=== PATIENT | male | born 1960 | race Caucasian/White ===

== ENCOUNTER 2017-05-03 19:03 | Inpatient (IN) | payer MEDICARE, MEDICAID ==
[~2017-05-03] VITALS: Ht 185.4 cm; Wt 80.7 kg
--- NOTE | 2017-05-03 19:10 | NUR ---
PATIENT BROUGHT IN BY PRIVATE AMBULANCE FROM [facility] ON 5150 HOLD FOR DTO/DTS. PATIENT UPON ARRIVAL A/OX4.CALM AND COOPERATIVE AND AMBULATORY WITH STEADY GAIT
[2017-05-03] MEDS ORDERED: CARB-36 PO (19:21)
[2017-05-03] MEDS ORDERED: ROPI2TAB5 PO (19:21)
[2017-05-03] MEDS ORDERED: PRAM0.7513 PO (19:21)
--- NOTE | 2017-05-03 19:30 | NUR ---
Medically cleared by Dr Alcaraz
--- NOTE | 2017-05-03 20:00 | NUR ---
PATIENT TOLERATED SNACK
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
--- NOTE | 2017-05-03 20:27 | NUR ---
TRANSFERED TO MHU VIA WHEELCHAIR WITH NO DISTRESS NOTED
[2017-05-03 20:30] VITALS: BP 97/65
[2017-05-03] MEDS ORDERED: ZOLPIDEM 5 MG TABLET PO PRN (21:15)
[2017-05-03] MEDS ORDERED: MAG HYDROX/AL HYDROX/SIMETH 30 ML LIQUID UDC PO PRN (21:15)
[2017-05-03] MEDS ORDERED: MAGNESIUM HYDROXIDE 30 ML LIQUID UDC PO PRN (21:15)
[2017-05-03] MEDS ORDERED: ACETAMINOPHEN 325 MG TABLET PO PRN (21:15)
[2017-05-03] MEDS ORDERED: ZOLPIDEM 5 MG TABLET ONE (21:24)
[2017-05-04 07:30] VITALS: BP 99/66
[2017-05-04] MEDS: LORAZEPAM 1 MG TABLET PO PRN (11:20)
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
[2017-05-04 16:30] VITALS: BP 101/57
[2017-05-04] MEDS: ropiniROLE 1 MG TABLET PO SCH ×2 (16:52→21:15)
[2017-05-04] MEDS: CARBIDOPA/LEVODOPA 25-250MG TABLET PO SCH ×2 (16:52→21:14)
[2017-05-04] MEDS: PRAMIPEXOLE 0.25 MG TABLET PO SCH ×2 (16:52→21:16)
[2017-05-04] MEDS ORDERED: LEVODOPA PO SCH (17:00)
[2017-05-04] MEDS ORDERED: [UNRECOGNIZED DRUG - OTHER] PO SCH (17:00)
[2017-05-04] MEDS ORDERED: CARBIDOPA PO SCH (17:00)
[2017-05-04] MEDS ORDERED: PRAMIPEXOLE DI HCL 0.75 MG PO SCH (17:00)
[2017-05-04 20:20] VITALS: BP 95/85
[2017-05-04] MEDS: QUETIAPINE FUMARATE 25 MG TABLET PO SCH (21:00)
--- NOTE | 2017-05-04 22:00 | NUR ---
RECEIVED PATIENT IN THE DAY ROOM WATCHING TV. HE IS A/O X 3. CALM AND COOPERATIVE. SEROQUEL 25MG PO QHS WAS HELD DUE TO PATENT LOW B/P 95/65MMHG AND PULSE 81 BPM. PATIENT DENIES WEAKNESS, DIZZINESS, OR PAIN AND DISCOMFORT. SNACKS WERE GIVEN TO PATIENT. HE WAS ALSO ADVISED TO GET UP SLOWLY FROM SITTING POSITIONS AND TO REPORT ANY CHANGES IN CONDITION. PATIENT VERBALIZED UNDERSTANDING.
[2017-05-05] MEDS: LORAZEPAM 1 MG TABLET PO PRN (04:26)
--- NOTE | 2017-05-05 07:09 | NUR ---
PATIENT SLEPT FOR APPROX 3 HRS THROUGH THE NIGHT. ATIVAN 1MG PO PRN FOR ANXIETY WAS GIVEN AT 0425.
[2017-05-05 08:09] VITALS: BP 107/79
[2017-05-05] MEDS: ropiniROLE 1 MG TABLET PO SCH ×4 (09:14→20:01)
[2017-05-05] MEDS: CARBIDOPA/LEVODOPA 25-250MG TABLET PO SCH ×3 (09:15→17:32)
[2017-05-05] MEDS: PRAMIPEXOLE 0.25 MG TABLET PO SCH ×4 (09:16→20:02)
[2017-05-05 15:59] VITALS: BP 107/79
--- NOTE | 2017-05-05 17:32 | NUR ---
Initial discharge Instructions:Pt resides in a facility with caregivers [[address] [place] [address]; ]. Per pt, he would not like to return there, but would ultimately like to live with his sister (Denisse Raymond; [phone]) in [place], [place]. Pt is consenting to contact his sister Bharti Raymond ([phone]) and his sister Denisse Raymond. SW will speak with pt, family, and MD regarding appropriate discharge plans. SW will form a safe and proper discharge.
--- NOTE | 2017-05-05 19:07 | NUR ---
PATIENT VISIBLE IN DAYROOM SPEND TIME WATCHING TV, AMBULATES WITH WALKER, CALM AND COOPERATIVE TODAY, NO ANGRY OUTBURST NOTED, CONSTANTLY ASKING FOR HIS MEDICATIONS, ATE 100% BREAKFAST, LUNCH AND DINNER. MEDICATION COMPLIANT AND COOPERATIVE, NO C/O PAIN OR DISCOMFORT NOTED. WILL CONTINUE TO MONITOR FOR SAFETY AND NEEDS.
[2017-05-05] MEDS: CARBIDOPA/LEVODOPA 25-100MG TABLET PO SCH (20:00)
[2017-05-05 20:32] VITALS: BP 99/66
[2017-05-05] MEDS: QUETIAPINE FUMARATE 25 MG TABLET PO SCH (21:00)
--- NOTE | 2017-05-05 22:28 | NUR ---
RECEIVED PATIENT SITTING IN A CHAIR IN THE HALLWAY. HE IS A/O X 3. ABLE TO MAKE HIS NEEDS KNOW. HE IS CALM AND COOPERATIVE. SEROQUEL 25MG PO QHS WAS HELD DUE TO PATENT LOW B/P 99/66MMHG AND PULSE 74 BPM. PATIENT DENIES WEAKNESS, DIZZINESS, OR PAIN AND DISCOMFORT. SNACKS WERE GIVEN TO PATIENT. 1HR LATER, HIS B/P WAS 104/60 AND PULSE 58. HE WAS ALSO ADVISED TO GET UP SLOWLY FROM SITTING OR LYING POSITIONS AND TO REPORT ANY CHANGES IN CONDITION. PATIENT VERBALIZED UNDERSTANDING.
[2017-05-06 07:30] VITALS: BP 118/83
[2017-05-06] MEDS: PRAMIPEXOLE 0.25 MG TABLET PO SCH ×4 (09:26→20:47)
[2017-05-06] MEDS: ropiniROLE 1 MG TABLET PO SCH ×4 (09:26→20:47)
[2017-05-06] MEDS: CARBIDOPA/LEVODOPA 25-100MG TABLET PO SCH ×4 (09:26→20:47)
--- NOTE | 2017-05-06 14:12 | NUR ---
Independent Jeweler: JALEEL submitted Firearms Mental Health Report to DOJ on 05/06/17.
[2017-05-06 15:00] VITALS: BP 126/81
[2017-05-06] MEDS: QUETIAPINE FUMARATE 25 MG TABLET PO SCH (20:46)
[2017-05-06 21:00] VITALS: BP 111/75
[2017-05-06] MEDS: LORAZEPAM 1 MG TABLET PO PRN (22:45)
[2017-05-07 07:04] LABS: BASOPHILS % (AUTO) 0.5 % (0.0-2.0); EOSINOPHILS # (AUTO) 0.1 K/uL (0.0-0.7); EOSINOPHILS % (AUTO) 2.4 % (0.0-7.0); HEMATOCRIT 40.4 % (36.7-47.1); HEMOGLOBIN 13.9 g/dL (12.5-16.3); LYMPHOCYTES % (AUTO) 32.1 % (20.5-51.5); MEAN CORPUSCULAR HEMOGLOBIN 30.7 uug (23.8-33.4); MEAN CORPUSCULAR HGB CONC 34 g/dL (32.5-36.3); MEAN CORPUSCULAR VOLUME 89.4 fL (73.0-96.2); MONOCYTES # (AUTO) 0.6 K/uL (2.0-10.0); MONOCYTES % (AUTO) 10.4 % (0.0-11.0); NEUTROPHILS # (AUTO) 3.3 K/uL (1.8-8.9); NEUTROPHILS % (AUTO) 54.6 % (38.5-71.5); PLATELET COUNT (AUTO) 130 K/uL (152-348); RED BLOOD CELL COUNT(AUTO) 4.52 MIL/uL (4.06-5.63); WHITE BLOOD COUNT (AUTO) 6.1 K/uL (3.6-10.2)
[2017-05-07 07:20] LABS: BILIRUBIN,TOTAL 0.3 mg/dL (0.2-1.0); CREATININE 0.9 mg/dL (0.6-1.3); MAGNESIUM 2.1 mg/dL (1.8-2.4); PHOSPHOROUS 3.1 mg/dL (2.5-4.9); POTASSIUM 3.7 mmol/L (3.5-5.1); THYROID STIMULATING HORMONE 2.229 mIU/mL (0.358-3.740); TOTAL PROTEIN, SERUM 7.5 g/dL (6.4-8.2)
[2017-05-07 07:30] VITALS: BP 113/76
[2017-05-07] MEDS: CARBIDOPA/LEVODOPA 25-100MG TABLET PO SCH ×4 (08:45→20:03)
[2017-05-07] MEDS: ropiniROLE 1 MG TABLET PO SCH ×4 (08:45→20:03)
[2017-05-07] MEDS: PRAMIPEXOLE 0.25 MG TABLET PO SCH ×4 (08:45→20:03)
--- NOTE | 2017-05-07 14:39 | NUR ---
Wednesday DC Note: Patient will be discharged to [facility] [[address], [place] [address]; ] via private transportation on May 08 at 12:00 pm. Spoke with Mar at the facility who states that they will provide the transportation and are ready to accept the patient. Patient's sister, Bharti is aware and agreeable with discharge plans. Patient is aware and agreeable with discharge plans. Patient will follow-up at the facility with Dr. Multani (Aircraft Instrument Mechanic) and Dr. Edwards (Psychiatrist).
[2017-05-07 15:38] VITALS: BP 94/54
[2017-05-07] MEDS: QUETIAPINE FUMARATE 25 MG TABLET PO SCH (20:03)
[2017-05-07 20:10] VITALS: BP 104/59
[2017-05-07] MEDS: LORAZEPAM 1 MG TABLET PO PRN (22:48)
--- NOTE | 2017-05-08 07:00 | NUR ---
GPS: REMAIN CALM AND COOPERATIVE AFTER ATIVAN GIVEN.A/O X3 AMBULATORY.SLEPT 07:30 HRS THROUGH THE NIGHT.
[2017-05-08 07:30] VITALS: BP 120/79
[2017-05-08] MEDS: PRAMIPEXOLE 0.25 MG TABLET PO SCH ×4 (08:50→20:07)
[2017-05-08] MEDS: CARBIDOPA/LEVODOPA 25-100MG TABLET PO SCH ×4 (08:50→20:07)
[2017-05-08] MEDS: ropiniROLE 1 MG TABLET PO SCH ×4 (08:51→20:07)
--- NOTE | 2017-05-08 10:22 | NUR ---
CALLED [facility] AND SPOKE TO PROMOTIONAL ADVERTISING ASSISTANT BRITT. STATED THEY WILL ACCEPT PT ON WEDNESDAY.
[2017-05-08 16:54] VITALS: BP 106/70
[2017-05-08] MEDS: QUETIAPINE FUMARATE 25 MG TABLET PO SCH (20:07)
[2017-05-08 20:47] VITALS: BP 112/63
--- NOTE | 2017-05-09 06:41 | NUR ---
NSG: REMAIN CALM AND COOPERATIVE WITH MEDICATION AND CARE. SLEPT 05:30 HRS THROUGH THE NIGHT.NO BEHAVIOR PROBLEM NOTED. CONTINUE PLAN OF CARE.
[2017-05-09 07:23] LABS: BASOPHILS % (AUTO) 0.3 % (0.0-2.0); EOSINOPHILS # (AUTO) 0.1 K/uL (0.0-0.7); EOSINOPHILS % (AUTO) 2.1 % (0.0-7.0); HEMATOCRIT 41.8 % (36.7-47.1); HEMOGLOBIN 14.2 g/dL (12.5-16.3); LYMPHOCYTES # (AUTO) 1.9 K/uL (20.0-40.0); LYMPHOCYTES % (AUTO) 34.2 % (20.5-51.5); MEAN CORPUSCULAR HEMOGLOBIN 30.4 uug (23.8-33.4); MEAN CORPUSCULAR HGB CONC 34 g/dL (32.5-36.3); MEAN CORPUSCULAR VOLUME 89.5 fL (73.0-96.2); MONOCYTES # (AUTO) 0.6 K/uL (2.0-10.0); MONOCYTES % (AUTO) 11.6 % (0.0-11.0); NEUTROPHILS # (AUTO) 2.8 K/uL (1.8-8.9); NEUTROPHILS % (AUTO) 51.8 % (38.5-71.5); PLATELET COUNT (AUTO) 129 K/uL (152-348); RED BLOOD CELL COUNT(AUTO) 4.67 MIL/uL (4.06-5.63); WHITE BLOOD COUNT (AUTO) 5.4 K/uL (3.6-10.2)
[2017-05-09 07:30] VITALS: BP 133/85
[2017-05-09 08:04] LABS: BILIRUBIN,TOTAL 0.4 mg/dL (0.2-1.0); CREATININE 0.9 mg/dL (0.6-1.3); PHOSPHOROUS 3.2 mg/dL (2.5-4.9); TOTAL PROTEIN, SERUM 7.7 g/dL (6.4-8.2)
[2017-05-09] MEDS: CARBIDOPA/LEVODOPA 25-100MG TABLET PO SCH ×4 (08:44→20:06)
[2017-05-09] MEDS: PRAMIPEXOLE 0.25 MG TABLET PO SCH ×4 (08:44→20:06)
[2017-05-09] MEDS: ropiniROLE 1 MG TABLET PO SCH ×4 (08:44→20:06)
[2017-05-09 16:46] VITALS: BP 110/72
[2017-05-09] MEDS ORDERED: PNEUMOCOCCAL 23-VAL P-SAC VAC 0.5 ML VIAL IM ONE (17:00)
[2017-05-09] MEDS ORDERED: INFLUENZA VACCINE 2017-2018 0.5 ML DISP.SYRIN IM ONE (17:00)
[2017-05-09] MEDS: QUETIAPINE FUMARATE 25 MG TABLET PO SCH (20:06)
[2017-05-09 20:27] VITALS: BP 123/81
--- NOTE | 2017-05-09 20:59 | NUR ---
PATIENT RECEIVED IN ROOM AWAKE. PATIENT HAS FLAT AFFECT, PATIENT CALM AND COOPERATIVE UPON APPROACH. PATIENT DENIES SI/AH/VH WILL CONTINUE TO MONITOR AND REDIRECT NEEDED. NO AGGRESSIVE OR COMBATIVE BEHAVIOR NOTED WILL CONTINUE TO MONITOR AND REDIRECT. PATIENT COMPLAINT WITH MEDICATION. PATIENT DENIES PAIN AT THIS TIME, WILL CONTINUE TO MONITOR.
[2017-05-09] MEDS: LORAZEPAM 1 MG TABLET PO PRN (23:17)
[2017-05-10 07:30] VITALS: BP 115/80
[2017-05-10] MEDS: PRAMIPEXOLE 0.25 MG TABLET PO SCH ×2 (08:19→12:09)
[2017-05-10] MEDS: CARBIDOPA/LEVODOPA 25-100MG TABLET PO SCH ×2 (08:20→12:08)
[2017-05-10] MEDS: ropiniROLE 1 MG TABLET PO SCH ×2 (08:20→12:09)
[2017-05-10] MEDS: LORAZEPAM 1 MG TABLET PO PRN (08:20)
--- NOTE | 2017-05-10 08:46 | NUR ---
Updated DC Note: Patient will be discharged to [facility] [[address], [place] [address]; ] via private transportation today at 12:00 pm. Spoke with Mar at the facility who states that they will provide the transportation and are ready to accept the patient. Patient's sister, Bharti is aware and agreeable with discharge plans. Patient is aware and agreeable with discharge plans. Patient will follow-up at the facility with Dr. Multani (Cnc Field Service Engineer) and Dr. Edwards (Psychiatrist)
[2017-05-10 12:11] LABS: HEPATITIS A AB, IgM Negative (Negative); HEPATITIS B SURFACE AG Negative (Negative)
--- NOTE | 2017-05-10 13:06 | NUR ---
GPS: Nursing Notes: Discharge Notes: Patient is awake and responding to his name, cooperative with nursing care, compliant with his medications, denies any SI/HI, denies any AH/VH, denies any pain or discomfort, denies any SOB, discharge to [facility] at [address] , [place] [address] , report given to Simin ATKINSON, patient's sister, Bharti notified by S.W., Dr. Multani (wagon driver) and Dr. Edwards (psychiatrist) will continue with aftercare at the facility, picked up by facility's private vehicle, [employer] winch driver, took all his belongings with him.
--- NOTE | 2017-05-10 15:04 | NUR ---
FAXED THE RESULTS OF HEPATITIS TESTS TO SALVATORE CARMONA ([id number])
== END 2017-05-10 13:15 | DRG 885 ==
LOC: ER 19:04 → EDBD 19:04 → GPS 20:13
PROVIDERS: ADMIT Psychiatry & Neurology Psychiatry; ATTEND Internal Medicine
DX: F23 Brief psychotic disorder (principal); F02.80 Dementia in other diseases classified elsewhere, unspecified severity, without behavioral disturbance, psychotic disturbance, mood disturbance, and anxiety; B18.2 Chronic viral hepatitis C; D69.6 Thrombocytopenia, unspecified; G20 Parkinson's disease; G30.9 Alzheimer's disease, unspecified; Z91.14 Patient's other noncompliance with medication regimen; F15.10 Other stimulant abuse, uncomplicated; G47.00 Insomnia, unspecified; Z86.59 Personal history of other mental and behavioral disorders; T42.8X5A Adverse effect of antiparkinsonism drugs and other central muscle-tone depressants, initial encounter; Y92.007 Garden or yard of unspecified non-institutional (private) residence as the place of occurrence of the external cause; F32.9 Major depressive disorder, single episode, unspecified; Z79.899 Other long term (current) drug therapy; L80 Vitiligo
CPT/HCPCS: 36415; 76705; 83735; 84100; 84443; 85025; 86705; 86709; 86803; 87340; 90686; 90732; A4663

== ENCOUNTER 2018-11-30 20:55 | Inpatient (IN) | payer MEDICARE, OTHER ==
[~2018-11-30] VITALS: Ht 182.9 cm; Wt 92.1 kg
[~2018-11-30 20:55] MED LIST: CARB-36 PO; PRAM0.7519 PO; ROPI2TAB5 PO
[2018-11-30 22:33] LABS: BASOPHILS % (AUTO) 0.4 % (0.0-2.0); EOSINOPHILS # (AUTO) 0.1 K/uL (0.0-0.7); EOSINOPHILS % (AUTO) 2.4 % (0.0-7.0); HEMATOCRIT 38.8 % (36.7-47.1); HEMOGLOBIN 12.9 g/dL (12.5-16.3); LYMPHOCYTES # (AUTO) 2.3 K/uL (20.0-40.0); LYMPHOCYTES % (AUTO) 37.3 % (20.5-51.5); MEAN CORPUSCULAR HEMOGLOBIN 29.1 uug (23.8-33.4); MEAN CORPUSCULAR HGB CONC 33 g/dL (32.5-36.3); MEAN CORPUSCULAR VOLUME 87.6 fL (73.0-96.2); MONOCYTES # (AUTO) 0.6 K/uL (2.0-10.0); NEUTROPHILS # (AUTO) 3.1 K/uL (1.8-8.9); NEUTROPHILS % (AUTO) 50.9 % (38.5-71.5); PLATELET COUNT (AUTO) 145 K/uL (152-348); RED BLOOD CELL COUNT(AUTO) 4.43 MIL/uL (4.06-5.63); WHITE BLOOD COUNT (AUTO) 6.2 K/uL (3.6-10.2)
[2018-11-30 22:41] LABS: *BILIRUBIN,URIN NEGATIVE (NEGATIVE); *BLOOD, URINE NEGATIVE (NEGATIVE); *CLARITY,URINE CLEAR (CLEAR); *COLOR,URINE YELLOW (YELLOW); *KETONES,URINE TRACE (NEGATIVE); LEUKOCYTE ESTERASE ,URINE NEGATIVE (NEGATIVE); NITRITE, URINE NEGATIVE (NEGATIVE); UGLUCOSE NEGATIVE (NEGATIVE)
[2018-11-30 22:44] LABS: ALANINE AMINOTRANSFERASE 47 U/L (16-63); ALKALINE PHOSPHATASE 148 U/L (50-136); ASPARTATE AMINOTRANSFERASE 72 U/L (15-37); BILIRUBIN,DIRECT 0.1 mg/dL (0.0-0.2); BILIRUBIN,TOTAL 0.4 mg/dL (0.2-1.0); CARBON DIOXIDE 30 mmol/L (21-32); CHLORIDE 105 mmol/L (98-107); CREATININE 0.9 mg/dL (0.6-1.3); GLUCOSE 106 mg/dL (74-106); POTASSIUM 4.1 mmol/L (3.5-5.1); TOTAL PROTEIN, SERUM 7.6 g/dL (6.4-8.2); UREA NITROGEN, BLOOD 23 mg/dL (7-18)
[2018-11-30 22:45] LABS: ACETAMINOPHEN < 2.0 ug/mL (10-30)
[2018-11-30 22:54] LABS: BACTERIA,URINE NONE SEEN /HPF (NONE SEEN); MUCUS,URINE MODERATE /LPF (0-FEW); RBC,URINE 0-3 /HPF (0-3); SQUAMOUS EPITHELIAL CELL,UR FEW /HPF (NONE SEEN); WBC,URINE 0-3 /HPF (0-3)
[2018-11-30 23:00] LABS: *AMPHETAMINE, URINE POSITIVE (NEGATIVE); *BARBITURATE, URINE NEGATIVE (NEGATIVE); *CANNABINOID, URINE NEGATIVE (NEGATIVE); *COCCAINE, URINE NEGATIVE (NEGATIVE); *OPIATE, URINE NEGATIVE (NEGATIVE); *PHENCYCLIDINE SCREEN,URINE NEGATIVE (NEGATIVE)
[2018-11-30 23:02] LABS: ETHANOL < 3 MG/DL (0-0)
[2018-12-01] MEDS ORDERED: ACETAMINOPHEN 325 MG TABLET PO PRN
[2018-12-01] MEDS ORDERED: LORAZEPAM 1 MG TABLET PO PRN
[2018-12-01] MEDS ORDERED: MAG HYDROX/AL HYDROX/SIMETH 30 ML LIQUID UDC PO PRN
[2018-12-01] MEDS ORDERED: MAGNESIUM HYDROXIDE 30 ML LIQUID UDC PO PRN
[2018-12-01 00:24] VITALS: BP 110/66
[2018-12-01 07:30] VITALS: BP 137/88
[2018-12-01] MEDS ORDERED: LEVODOPA PO SCH (10:00)
[2018-12-01] MEDS ORDERED: CARBIDOPA PO SCH (10:00)
[2018-12-01] MEDS ORDERED: [UNRECOGNIZED DRUG - OTHER] PO SCH (10:00)
[2018-12-01] MEDS ORDERED: PRAMIPEXOLE DI HCL 0.75 MG PO SCH (10:00)
[2018-12-01] MEDS ORDERED: CARB-94 PO (10:22)
[2018-12-01] MEDS ORDERED: PRAM1TAB7 PO (10:30)
[2018-12-01] MEDS ORDERED: MELA3TAB PO (10:30)
[2018-12-01] MEDS ORDERED: CARB-96 PO (10:30)
[2018-12-01] MEDS ORDERED: DOCU100C36 PO (10:30)
[2018-12-01] MEDS ORDERED: MULT1TAB73 PO (10:30)
[2018-12-01] MEDS: ropiniROLE 1 MG TABLET PO SCH ×4 (11:37→20:43)
[2018-12-01] MEDS: MULTIVITAMINS,THERAPEUTIC TABLET PO SCH (12:49)
[2018-12-01] MEDS: PRAMIPEXOLE 1 MG TABLET PO SCH ×3 (12:49→20:43)
[2018-12-01] MEDS: CARBIDOPA/LEVODOPA 25-250MG TABLET PO SCH ×3 (12:50→20:43)
[2018-12-01 16:00] VITALS: BP 110/72
[2018-12-01 20:12] VITALS: BP 100/64
[2018-12-01] MEDS: QUETIAPINE FUMARATE 25 MG TABLET PO SCH (20:43)
[2018-12-01] MEDS: CARBIDOPA/LEVODOPA CR 50-200MG TABLET.SA PO SCH (23:44)
[2018-12-02 07:30] VITALS: BP 119/76
[2018-12-02] MEDS: ropiniROLE 1 MG TABLET PO SCH ×4 (08:29→20:26)
[2018-12-02] MEDS: CARBIDOPA/LEVODOPA 25-250MG TABLET PO SCH ×4 (08:29→20:25)
[2018-12-02] MEDS: MULTIVITAMINS,THERAPEUTIC TABLET PO SCH (08:30)
[2018-12-02] MEDS: PRAMIPEXOLE 1 MG TABLET PO SCH ×4 (08:30→20:25)
[2018-12-02] MEDS: QUETIAPINE FUMARATE 25 MG TABLET PO SCH ×2 (08:30→20:25)
[2018-12-02] MEDS: DOCUSATE SODIUM 100 MG CAPSULE PO SCH (08:30)
[2018-12-02] MEDS ORDERED: Medication Not On Formulary EA (Multivitamins (Multivitamin) 1 TAB) PO SCH (09:00)
[2018-12-02 16:00] VITALS: BP 99/59
[2018-12-02 19:49] VITALS: BP 115/75
[2018-12-02] MEDS: CARBIDOPA/LEVODOPA CR 50-200MG TABLET.SA PO SCH (20:25)
[2018-12-02] MEDS: TEMAZEPAM 7.5 MG CAPSULE PO PRN (23:26)
[2018-12-03 07:30] VITALS: BP 127/87
[2018-12-03] MEDS: MULTIVITAMINS,THERAPEUTIC TABLET PO SCH (08:54)
[2018-12-03] MEDS: PRAMIPEXOLE 1 MG TABLET PO SCH ×4 (08:54→20:32)
[2018-12-03] MEDS: QUETIAPINE FUMARATE 25 MG TABLET PO SCH ×2 (08:54→20:32)
[2018-12-03] MEDS: CARBIDOPA/LEVODOPA 25-250MG TABLET PO SCH ×4 (08:54→20:32)
[2018-12-03] MEDS: ropiniROLE 1 MG TABLET PO SCH ×4 (08:54→20:32)
[2018-12-03] MEDS: DOCUSATE SODIUM 100 MG CAPSULE PO SCH (08:54)
[2018-12-03 16:00] VITALS: BP 110/65
[2018-12-03 20:11] VITALS: BP 110/65
[2018-12-03] MEDS: CARBIDOPA/LEVODOPA CR 50-200MG TABLET.SA PO SCH (20:32)
[2018-12-03] MEDS: TEMAZEPAM 7.5 MG CAPSULE PO PRN (22:53)
[2018-12-04 07:30] VITALS: BP 135/87
[2018-12-04] MEDS: ropiniROLE 1 MG TABLET PO SCH ×4 (08:37→20:08)
[2018-12-04] MEDS: DOCUSATE SODIUM 100 MG CAPSULE PO SCH (08:37)
[2018-12-04] MEDS: CARBIDOPA/LEVODOPA 25-250MG TABLET PO SCH ×4 (08:37→20:06)
[2018-12-04] MEDS: MULTIVITAMINS,THERAPEUTIC TABLET PO SCH (08:37)
[2018-12-04] MEDS: QUETIAPINE FUMARATE 25 MG TABLET PO SCH ×2 (08:37→20:07)
[2018-12-04] MEDS: PRAMIPEXOLE 1 MG TABLET PO SCH ×4 (08:37→20:06)
[2018-12-04 16:00] VITALS: BP 119/75
[2018-12-04 20:00] VITALS: BP 129/78
[2018-12-04] MEDS: CARBIDOPA/LEVODOPA CR 50-200MG TABLET.SA PO SCH (20:06)
[2018-12-04] MEDS: TEMAZEPAM 7.5 MG CAPSULE PO PRN (21:54)
[2018-12-05 07:30] VITALS: BP 119/75
[2018-12-05] MEDS: ropiniROLE 1 MG TABLET PO SCH ×4 (08:21→20:18)
[2018-12-05] MEDS: PRAMIPEXOLE 1 MG TABLET PO SCH ×4 (08:21→20:16)
[2018-12-05] MEDS: CARBIDOPA/LEVODOPA 25-250MG TABLET PO SCH ×4 (08:22→20:14)
[2018-12-05] MEDS: MULTIVITAMINS,THERAPEUTIC TABLET PO SCH (08:22)
[2018-12-05] MEDS: QUETIAPINE FUMARATE 25 MG TABLET PO SCH ×2 (08:22→20:14)
[2018-12-05] MEDS: DOCUSATE SODIUM 100 MG CAPSULE PO SCH (08:22)
[2018-12-05 16:06] VITALS: BP 121/82
[2018-12-05 20:06] VITALS: BP 125/78
[2018-12-05] MEDS: CARBIDOPA/LEVODOPA CR 50-200MG TABLET.SA PO SCH (20:14)
[2018-12-05] MEDS: QUETIAPINE FUMARATE 100 MG TABLET PO SCH (22:00)
[2018-12-05] MEDS: TEMAZEPAM 7.5 MG CAPSULE PO PRN (23:04)
[2018-12-06 07:30] VITALS: BP 126/89
[2018-12-06] MEDS: DOCUSATE SODIUM 100 MG CAPSULE PO SCH (08:20)
[2018-12-06] MEDS: ropiniROLE 1 MG TABLET PO SCH ×4 (08:20→20:25)
[2018-12-06] MEDS: QUETIAPINE FUMARATE 25 MG TABLET PO SCH (08:21)
[2018-12-06] MEDS: MULTIVITAMINS,THERAPEUTIC TABLET PO SCH (08:21)
[2018-12-06] MEDS: PRAMIPEXOLE 1 MG TABLET PO SCH ×4 (08:21→20:24)
[2018-12-06] MEDS: CARBIDOPA/LEVODOPA 25-250MG TABLET PO SCH ×4 (08:21→20:24)
[2018-12-06 15:33] VITALS: BP 110/62
[2018-12-06 20:05] VITALS: BP 123/81
[2018-12-06] MEDS: QUETIAPINE FUMARATE 100 MG TABLET PO SCH (20:18)
[2018-12-06 20:50] VITALS: BP 133/87
[2018-12-06] MEDS: TEMAZEPAM 7.5 MG CAPSULE PO PRN (21:19)
[2018-12-07] MEDS: CARBIDOPA/LEVODOPA CR 50-200MG TABLET.SA PO SCH (00:19)
[2018-12-07 05:00] VITALS: BP 120/77
[2018-12-07] MEDS: PRAMIPEXOLE 1 MG TABLET PO SCH ×2 (08:31→12:25)
[2018-12-07] MEDS: CARBIDOPA/LEVODOPA 25-250MG TABLET PO SCH ×2 (08:31→12:26)
[2018-12-07] MEDS: DOCUSATE SODIUM 100 MG CAPSULE PO SCH (08:31)
[2018-12-07] MEDS: MULTIVITAMINS,THERAPEUTIC TABLET PO SCH (08:31)
[2018-12-07] MEDS: QUETIAPINE FUMARATE 25 MG TABLET PO SCH (08:32)
[2018-12-07] MEDS: ropiniROLE 1 MG TABLET PO SCH ×2 (08:33→12:25)
[2018-12-07 11:40] VITALS: BP 116/74
== END 2018-12-07 14:20 | DRG 885 ==
LOC: EDBD → MERGE 20:55 → ER 20:55 → GPS 23:43 → GPSOV3 12-06 21:04
PROVIDERS: ADMIT Psychiatry & Neurology Psychiatry; ATTEND Internal Medicine
DX: F20.0 Paranoid schizophrenia (principal); G20 Parkinson's disease; H54.61 Unqualified visual loss, right eye, normal vision left eye; Z79.899 Other long term (current) drug therapy; R79.89 Other specified abnormal findings of blood chemistry; F15.10 Other stimulant abuse, uncomplicated; F10.10 Alcohol abuse, uncomplicated; Y90.0 Blood alcohol level of less than 20 mg/100 ml; F51.04 Psychophysiologic insomnia; D69.6 Thrombocytopenia, unspecified
CPT/HCPCS: 36415; 71045; 80307; 85025; 93005; 97110; 97112; 97116; 97530; A4663; G0480; G0480-TC

== ENCOUNTER 2019-07-18 17:51 | Inpatient (IN) | payer MEDICARE, OTHER ==
[~2019-07-18] VITALS: Ht 182.9 cm; Wt 88.9 kg
[~2019-07-18 17:51] MED LIST changes: -CARB-36 PO; +CARB-94 PO; +CARB-96 PO; +DOCU100C36 PO; +MELA3TAB41 PO; +MULT1TAB73 PO; -PRAM0.7519 PO; +PRAM1TAB7 PO; -ROPI2TAB5 PO; +ROPI2TAB7 PO
[2019-07-18 18:27] LABS: BASOPHILS % (AUTO) 0.4 % (0.0-2.0); EOSINOPHILS # (AUTO) 0.1 K/uL (0.0-0.7); EOSINOPHILS % (AUTO) 1.6 % (0.0-7.0); HEMATOCRIT 41.8 % (36.7-47.1); HEMOGLOBIN 13.9 g/dL (12.5-16.3); LYMPHOCYTES # (AUTO) 1.9 K/uL (20.0-40.0); LYMPHOCYTES % (AUTO) 25.3 % (20.5-51.5); MEAN CORPUSCULAR HEMOGLOBIN 28.8 uug (23.8-33.4); MEAN CORPUSCULAR HGB CONC 33 g/dL (32.5-36.3); MEAN CORPUSCULAR VOLUME 86.7 fL (73.0-96.2); MONOCYTES # (AUTO) 0.8 K/uL (2.0-10.0); MONOCYTES % (AUTO) 11.1 % (0.0-11.0); NEUTROPHILS # (AUTO) 4.5 K/uL (1.8-8.9); NEUTROPHILS % (AUTO) 61.6 % (38.5-71.5); PLATELET COUNT (AUTO) 168 K/uL (152-348); RED BLOOD CELL COUNT(AUTO) 4.82 MIL/uL (4.06-5.63); WHITE BLOOD COUNT (AUTO) 7.4 K/uL (3.6-10.2)
[2019-07-18 18:37] LABS: CARBON DIOXIDE 30 mmol/L (21-32); CHLORIDE 106 mmol/L (98-107); GLUCOSE 101 mg/dL (74-106); POTASSIUM 4.1 mmol/L (3.5-5.1); UREA NITROGEN, BLOOD 31 mg/dL (7-18)
[2019-07-18] MEDS ORDERED: DULCOLAX SUPP PR (18:42)
[2019-07-18] MEDS ORDERED: NA P133E RC (18:42)
[2019-07-18] MEDS ORDERED: FLUD0.1T PO (18:42)
[2019-07-18] MEDS ORDERED: CALC500T88 PO (18:42)
[2019-07-18] MEDS ORDERED: ACET-2154 PO (18:42)
[2019-07-18] MEDS ORDERED: TRAZ-182 PO (18:42)
[2019-07-18] MEDS ORDERED: ROPI3TAB PO (18:42)
[2019-07-18] MEDS ORDERED: MV-M1TAB2 PO (18:42)
[2019-07-18] MEDS ORDERED: ROPI2TAB PO (18:42)
[2019-07-18] MEDS ORDERED: SIME120L PO (18:42)
[2019-07-18] MEDS ORDERED: MAGN400O6 PO (18:42)
[2019-07-18] MEDS ORDERED: QUET25TA PO (18:42)
[2019-07-18 18:50] LABS: ALANINE AMINOTRANSFERASE 74 U/L (16-63); ALKALINE PHOSPHATASE 131 U/L (50-136); ASPARTATE AMINOTRANSFERASE 159 U/L (15-37); BILIRUBIN,DIRECT 0.2 mg/dL (0.0-0.2); BILIRUBIN,TOTAL 0.6 mg/dL (0.2-1.0); TOTAL PROTEIN, SERUM 8.2 g/dL (6.4-8.2)
[2019-07-18 18:52] LABS: ACETAMINOPHEN < 2.0 ug/mL (10-30)
[2019-07-18 18:59] LABS: ETHANOL < 3 MG/DL (0-0)
--- NOTE | 2019-07-18 19:05 | NUR ---
RECEIVED HAND OFF AND SBAR FR OUTGOING DAY SHIFT RN PT IS SITTING AT END OF GURBOYCE NAD PENDING DECISION HOUSE SUP REGARDING ADMISSION VS TRANSPORT TO [facility] PENDING URINE SAMPLE PT IS CALM AND COMPLIANT
--- NOTE | 2019-07-18 19:38 | NUR ---
F/U WITH HOUSE SUP: PT OK TO ADMIT TO 3RD FLR OVER FLOW
--- NOTE | 2019-07-18 19:39 | NUR ---
CALL FOR BED DONE RM 323
[2019-07-18] MEDS ORDERED: CARBIDOPA/LEVODOPA CR 50-200MG TABLET.SA PO SCH (20:45)
[2019-07-18] MEDS ORDERED: CARBIDOPA/LEVODOPA CR 50-200MG TABLET.SA PO ONE (20:47)
--- NOTE | 2019-07-18 20:53 | NUR ---
DIMA AMEZCUA ETA 30MINS
[2019-07-18 21:08] LABS: *BILIRUBIN,URIN NEGATIVE (NEGATIVE); *BLOOD, URINE NEGATIVE (NEGATIVE); *CLARITY,URINE CLEAR (CLEAR); *COLOR,URINE YELLOW (YELLOW); *KETONES,URINE TRACE (NEGATIVE); LEUKOCYTE ESTERASE ,URINE NEGATIVE (NEGATIVE); NITRITE, URINE NEGATIVE (NEGATIVE); UGLUCOSE NEGATIVE (NEGATIVE)
[2019-07-18 21:31] LABS: MUCUS,URINE MODERATE /LPF (0-FEW); WBC,URINE 0-3 /HPF (0-3)
--- NOTE | 2019-07-18 21:58 | NUR ---
GOLDIE AT BEDSIDE FOR PSYCHE EVAL
--- NOTE | 2019-07-18 22:01 | NUR ---
FOR VOLUNTARY ADMISSION
--- NOTE | 2019-07-18 23:18 | NUR ---
HAND OFF AND SBAR GIVEN TO JANAE WOLF PT WILL BE ADMITTED PSYCHE OVERFLOW TO RM [address] HDEZ/ LOLA DX: PSYCHE EVAL/VOLUNTARY ADMISSION FOR PSYCHOSIS (AUDITORY HALLUCINATIONS) PT NAD, RA BELONGINGS LIST SIGNED AND ACCOUNTED FOR
--- NOTE | 2019-07-18 23:40 | NUR ---
TRANSPORTED VIA [facility] BY ALEX WOLF
[2019-07-18] MEDS ORDERED: CLONAZEPAM 0.5 MG TABLET PO PRN (23:45)
[2019-07-18] MEDS ORDERED: TEMAZEPAM 7.5 MG CAPSULE PO PRN (23:45)
[2019-07-18] MEDS ORDERED: ACETAMINOPHEN 325 MG TABLET PO PRN (23:45)
[2019-07-18] MEDS ORDERED: MAG HYDROX/AL HYDROX/SIMETH 30 ML LIQUID UDC PO PRN (23:45)
[2019-07-18] MEDS ORDERED: BLOOD SUGAR DIAGNOSTIC 1 EACH STRIP VI ONE (23:45)
[2019-07-18] MEDS ORDERED: MAGNESIUM HYDROXIDE 30 ML LIQUID UDC PO PRN (23:45)
--- NOTE | 2019-07-18 23:45 | NUR ---
PATIENT ADMITTED FROM EMERGENCY DEPARTMENT TO [facility] WITH DIAGNOSIS OF MAJOR DEPRESSION. PATIENT DENIES ANY HALLUCINATIONS OR SUICIDAL IDEATIONS. SAFETY/ FALL PRECAUTIONS IN PLACE PRECAUTIONS IN PLACE. BED ALARM ON, BED LOCKED, IN LOW POSITION, SEMI FOWLERS. VITAL SIGNS WITHIN NORMAL. ADMISSION ORDERS CARRIED OUT. WILL CONTINUE TO MONITOR.
[2019-07-18 23:56] VITALS: BP 135/78
[2019-07-19] MEDS ORDERED: CARBIDOPA/LEVODOPA 25-250MG TABLET PO ONE (00:15)
[2019-07-19] MEDS ORDERED: PRAMIPEXOLE 1 MG TABLET PO ONE (00:15)
--- NOTE | 2019-07-19 00:15 | NUR ---
PATIENT VERBALIZE THAT HE HAS NOT YET TAKEN HIS FINAL DAILY DOSE OF CARBIDOPA/LEVIDOPA 25-250 AND MIRAPEX 1MG. CONTACTED DOCTOR GRADING CLERK, IRISH ANNA, AND HE GAVE ONE TIME ORDER FOR CARBIDOPA/LEVIDOPA 25-250 AND MIRAPEX 1MG.
[2019-07-19 03:12] LABS: *AMPHETAMINE, URINE POSITIVE (NEGATIVE); *BARBITURATE, URINE NEGATIVE (NEGATIVE); *CANNABINOID, URINE NEGATIVE (NEGATIVE); *COCCAINE, URINE NEGATIVE (NEGATIVE)
[2019-07-19 03:13] LABS: *OPIATE, URINE NEGATIVE (NEGATIVE); *PHENCYCLIDINE SCREEN,URINE NEGATIVE (NEGATIVE)
[2019-07-19] MEDS ORDERED: FLUDROCORTISONE ACETATE 0.1 MG TABLET PO PRN (08:00)
[2019-07-19] MEDS: CARBIDOPA/LEVODOPA CR 50-200MG TABLET.SA PO SCH ×2 (08:17→16:17)
[2019-07-19] MEDS: ropiniROLE 1 MG TABLET PO SCH ×3 (08:18→16:17)
[2019-07-19] MEDS: PRAMIPEXOLE 1 MG TABLET PO SCH ×4 (08:18→20:52)
[2019-07-19] MEDS: CARBIDOPA/LEVODOPA 25-250MG TABLET PO SCH ×4 (08:18→20:52)
[2019-07-19 08:21] VITALS: BP 123/84
[2019-07-19] MEDS ORDERED: ROPINIROLE HCL 2 MG PO SCH (09:00)
--- NOTE | 2019-07-19 11:17 | NUR ---
Social Work/Initial Discharge Note: Patient currently resides at [facility] [address] [place] [address]; ([phone]). Patient would like to return to facility when stable and ready for discharge. Cornice Upholsterer will continue to work with patient , family, and MD to form a safe and proper discharge plan.
--- NOTE | 2019-07-19 11:18 | NUR ---
Social Work/Substance Abuse Intervention: Patient was provided with a brief substance abuse intervention and provided with the [facility] Substance Abuse Self-helpline ([facility]) ([phone]), [facility] [place] [facility]: Agnes Page [address] [address] ([phone]).
--- NOTE | 2019-07-19 11:53 | NUR ---
Social Work/Firearms Report (DOJ): Char Puller completed and submitted a DPJ firearms report. A copy of report has been placed in patient chart.
[2019-07-19 15:54] VITALS: BP 153/57
[2019-07-19] MEDS: TRAZODONE 50 MG TABLET PO SCH (17:03)
[2019-07-19] MEDS: QUETIAPINE FUMARATE 25 MG TABLET PO SCH (17:03)
--- NOTE | 2019-07-19 19:30 | NUR ---
Received pt awake, alert and orientedx 3 . Pt in no acute distress.Pt pleasant when approached. Pt no suicidal ideation. Safety and comfort provided. Will continue to monitor.
[2019-07-19 20:05] VITALS: BP 113/66
[2019-07-20 05:39] VITALS: BP 112/68
--- NOTE | 2019-07-20 06:15 | NUR ---
Pt slept 8 hours . Pt in no acute distress. Prescribed medication given and pt tolerated it well. Safety and comfort provided. All needs are met. Will endorse to incoming nurse for continuity of care.
[2019-07-20 07:17] VITALS: BP 129/77
--- NOTE | 2019-07-20 07:30 | NUR ---
Received pt awake, alert and oriented x 3 . no acute distress.Pt pleasant when approached. no suicidal ideation. Safety and comfort provided. Will continue to monitor.
[2019-07-20] MEDS: CARBIDOPA/LEVODOPA 25-250MG TABLET PO SCH ×4 (08:00→20:17)
[2019-07-20] MEDS: ropiniROLE 1 MG TABLET PO SCH ×3 (08:00→16:13)
[2019-07-20] MEDS: PRAMIPEXOLE 1 MG TABLET PO SCH ×4 (08:00→20:14)
[2019-07-20] MEDS: CARBIDOPA/LEVODOPA CR 50-200MG TABLET.SA PO SCH ×2 (08:00→16:13)
--- NOTE | 2019-07-20 15:18 | NUR ---
Social Work/Coordination of Care: Stull Hewer spoke with Edna from the intake department of [facility] ([phone]) and faxed patient's referral packet which includes patients History and Physical, Consultation, Medication List and Labs, and Progress Notes. Edna stated that they currently have a waitlist for their Intensive Outpatient Program and that patient will be placed on the list.
[2019-07-20 15:30] VITALS: BP 110/68
[2019-07-20] MEDS: QUETIAPINE FUMARATE 25 MG TABLET PO SCH (17:01)
[2019-07-20] MEDS: TRAZODONE 50 MG TABLET PO SCH (17:02)
--- NOTE | 2019-07-20 17:48 | NUR ---
pt seen by dr Singh
--- NOTE | 2019-07-20 19:30 | NUR ---
PATIENT ALERT AND ORIENT. NO STATEMENT OF SUICIDAL IDEATION OF DEPRESSING UPON ASSESSMENT. AFFECT IS APPROPRIATE, AND PATIENT IS COOPERATIVE. WILL CONTINUE TO MONITOR.
[2019-07-20 20:11] VITALS: BP 98/59
--- NOTE | 2019-07-21 06:23 | NUR ---
Patient slept well during the night. PRN Restoril given for slept management. Patient requesting information regarding discharge plans from social insurance analyst today. Will inform day shift RN. Will continue to monitor.
[2019-07-21] MEDS: CARBIDOPA/LEVODOPA 25-250MG TABLET PO SCH (08:05)
[2019-07-21] MEDS: PRAMIPEXOLE 1 MG TABLET PO SCH (08:05)
[2019-07-21] MEDS: CARBIDOPA/LEVODOPA CR 50-200MG TABLET.SA PO SCH (08:05)
[2019-07-21] MEDS: ropiniROLE 1 MG TABLET PO SCH (08:06)
--- NOTE | 2019-07-21 08:07 | NUR ---
Social Work/ Discharge Note: Patient will be discharged to [facility] [place] [facility], [address] ([phone]). Health Care Attorney spoke with Mar, marketing intern, who stated patient is able to return to facility today. Patient pick pack worker is arranged by the facilitys transportation for today at 11:00am. Patient is aware and agreeable with discharge plan. Patient is alert and oriented times 4 and denies suicidal or homicidal ideation. Patient presents with calm mood and full range affect. Patient will follow up with Dr. Rushing, Lye Machine Operator and Dr. Edwards, Psychiatrist at [facility] [place]. Patient was provided with brief substance abuse intervention and was referred to [facility] Alcohol and Drug Programs ([phone]); [facility] National Helpline ( ); [facility] Behavioral Health [[address] [place] [address]; [phone]]; [facility] Crisis Line ; and National Suicide Prevention Lifeline [ ]. Patient was also referred to [facility] EMANUEL and Edna from Intake placed patient on their wailing for admission into the program ([phone]).
--- NOTE | 2019-07-21 11:16 | NUR ---
dc orders received noted and carried out.dc instruction given to the pt,pt verbalized understanding all the instruction and said he will follow up with pcp.pt left the facility with private car in stable condition
[2019-07-21 11:36] VITALS: BP 106/59
--- NOTE | 2019-08-01 14:25 | NUR ---
Social Work Substance Abuse Follow Up Intervention: Substance abuse follow up intervention excluded due to patient being discharged to a [facility] facility.
== END 2019-07-21 11:15 | DRG 885 ==
LOC: ER 17:54 → GPSOV3 23:17
PROVIDERS: ADMIT Psychiatry & Neurology Psychiatry; ATTEND Nurse Practitioner Acute Care
DX: F29 Unspecified psychosis not due to a substance or known physiological condition (principal); J98.11 Atelectasis; H54.61 Unqualified visual loss, right eye, normal vision left eye; G20 Parkinson's disease; Z66 Do not resuscitate; N50.0 Atrophy of testis; D64.9 Anemia, unspecified; R26.81 Unsteadiness on feet; R74.0 Nonspecific elevation of levels of transaminase and lactic acid dehydrogenase [LDH]; R73.9 Hyperglycemia, unspecified; R79.89 Other specified abnormal findings of blood chemistry; F15.90 Other stimulant use, unspecified, uncomplicated
CPT/HCPCS: 36415; 70030-TC; 71045; 80307; 84443; 85025; 87086; 93005; A4663; G0480; G0480-TC

== ENCOUNTER 2019-11-07 17:50 | Inpatient (IN) | payer MEDICARE, OTHER ==
[~2019-11-07] VITALS: Ht 177.8 cm; Wt 88.0 kg
[~2019-11-07 17:50] MED LIST changes: +ACET-2154 PO; +CALC500T88 PO; +DULCOLAX SUPP PR; +FLUD0.1T PO; +MAGN400O6 PO; -MELA3TAB41 PO; -MULT1TAB73 PO; +MV-M1TAB2 PO; +NA P133E RC; +QUET25TA PO; +ROPI2TAB PO; -ROPI2TAB7 PO; +ROPI3TAB PO; +SIME120L PO; +TRAZ-182 PO
[2019-11-07 18:42] LABS: BASOPHILS # (AUTO) 0.1 K/uL (0.0-8.0); BASOPHILS % (AUTO) 0.7 % (0.0-2.0); EOSINOPHILS # (AUTO) 0.1 K/uL (0.0-0.7); EOSINOPHILS % (AUTO) 1.8 % (0.0-7.0); HEMATOCRIT 42.6 % (36.7-47.1); HEMOGLOBIN 14.1 g/dL (12.5-16.3); LYMPHOCYTES # (AUTO) 2.2 K/uL (20.0-40.0); LYMPHOCYTES % (AUTO) 25.8 % (20.5-51.5); MEAN CORPUSCULAR HEMOGLOBIN 29.4 uug (23.8-33.4); MEAN CORPUSCULAR HGB CONC 33 g/dL (32.5-36.3); MONOCYTES # (AUTO) 0.6 K/uL (2.0-10.0); MONOCYTES % (AUTO) 7.1 % (0.0-11.0); NEUTROPHILS # (AUTO) 5.4 K/uL (1.8-8.9); NEUTROPHILS % (AUTO) 64.6 % (38.5-71.5); PLATELET COUNT (AUTO) 157 K/uL (152-348); RED BLOOD CELL COUNT(AUTO) 4.79 MIL/uL (4.06-5.63); WHITE BLOOD COUNT (AUTO) 8.4 K/uL (3.6-10.2)
[2019-11-07 18:50] LABS: CARBON DIOXIDE 29 mmol/L (21-32); CHLORIDE 104 mmol/L (98-107); CREATININE 1.3 mg/dL (0.6-1.3); GLUCOSE 97 mg/dL (74-106); POTASSIUM 3.9 mmol/L (3.5-5.1); UREA NITROGEN, BLOOD 20 mg/dL (7-18)
[2019-11-07] MEDS ORDERED: PIMA34CA PO (18:55)
[2019-11-07] MEDS ORDERED: MELA5TAB PO (18:55)
[2019-11-07] MEDS ORDERED: PRAM0.253 PO (18:55)
[2019-11-07] MEDS ORDERED: MIRALAX PO (18:55)
[2019-11-07] MEDS ORDERED: DIPH25CA83 PO (18:55)
[2019-11-07] MEDS ORDERED: TRAZ-182 PO (18:55)
[2019-11-07] MEDS ORDERED: ACET-73 PO (18:55)
[2019-11-07] MEDS ORDERED: DOCU-141 PO (18:55)
[2019-11-07 18:56] LABS: ALANINE AMINOTRANSFERASE 20 U/L (16-63); ALKALINE PHOSPHATASE 110 U/L (50-136); ASPARTATE AMINOTRANSFERASE 59 U/L (15-37); BILIRUBIN,DIRECT 0.2 mg/dL (0.0-0.2); BILIRUBIN,TOTAL 0.6 mg/dL (0.2-1.0); TOTAL PROTEIN, SERUM 7.7 g/dL (6.4-8.2)
[2019-11-07 18:57] LABS: ACETAMINOPHEN < 2.0 ug/mL (10-30); ETHANOL < 3 MG/DL (0-0)
[2019-11-07 21:14] LABS: *BILIRUBIN,URIN 1+ (NEGATIVE); *BLOOD, URINE NEGATIVE (NEGATIVE); *COLOR,URINE AMBER (YELLOW); *KETONES,URINE 1+ (NEGATIVE); *UROBILINOGEN,URINE >=8.0 E.U./dl (NORMAL); LEUKOCYTE ESTERASE ,URINE NEGATIVE (NEGATIVE); NITRITE, URINE NEGATIVE (NEGATIVE); UGLUCOSE NEGATIVE (NEGATIVE)
[2019-11-07 21:28] LABS: *AMPHETAMINE, URINE NEGATIVE (NEGATIVE); *BARBITURATE, URINE NEGATIVE (NEGATIVE); *CANNABINOID, URINE POSITIVE (NEGATIVE); *COCCAINE, URINE NEGATIVE (NEGATIVE); *PHENCYCLIDINE SCREEN,URINE NEGATIVE (NEGATIVE)
[2019-11-07 21:37] LABS: *CLARITY,URINE SLIGHTLY HAZY (CLEAR)
[2019-11-07 21:39] LABS: MUCUS,URINE MANY /LPF (0-FEW)
[2019-11-07 21:42] LABS: *OPIATE, URINE NEGATIVE (NEGATIVE)
--- NOTE | 2019-11-07 21:54 | NUR ---
PATIENT WAS MEDICALLY CLEARED BY DR ZARATE.
--- NOTE | 2019-11-07 22:00 | NUR ---
RERE SELLERSW WAS CALLED WILL COME SEE PATIENT FOR FACE TO FACE EVAL.
[2019-11-07 23:30] VITALS: BP 119/82
--- NOTE | 2019-11-07 23:30 | NUR ---
Pt. admitted to MHU , under care of Dr. HDEZ Belongs List completed
--- NOTE | 2019-11-07 23:50 | NUR ---
GPS/ 2330: NEW ADMIT A 58 Y/O MALE FROM ER, TRANSPORTED VIA W/C. PT ON 5150 HOLD DUE TO PSYCHOSIS/GD. PT FROM [facility]. ACCORDING TO REPORT PT WAS AGGRESSIVE TOWARD STAFFS, AGITATED AND INAPPROPRIATE SEXUAL BEHAVIOR AND CONFUSE. PT ASSIGNED TO LEMUEL ARRIAGA AND MEDICATIONS RECONCILIATION CALLED IN TO [facility] BEAUTY CONSULTANT. PT ADMITTING DX/HX: DEMENTIA, DEPRESSION, SCHIZOPHRENIA, PARKINSON DISEASE, HX OF ETOH. PT RIGHT AND ADVISEMENT SIGNED AND COPY GIVEN WITH NEW ADMIT PACKAGE. FACE TO FACE ASSESSMENT DONE AND PT ABLE TO RESPOND BACK BUT AGITATED AND CONFUSED, DENIED THOUGHT OF HARMING SELF OR OTHERS, PT SEEM TO BE DOWN PLAYING HIS SYMPTOMS AT THIS TIME. PT UNKEMPT AND SHOWER WAS OFFERED. NOTED WITH A LOT OF TREMORS DUE TO DX. REQUESTED FOR SLEEPING PILL AND RESTORIL 7.5MG GIVEN. SAFETY REENFORCED IN PLACE DUE TO UNSTABLE GAIT. Q15/MINS HEAD COUNT WILL CONTINUE.
[2019-11-08] MEDS ORDERED: MAG HYDROX/AL HYDROX/SIMETH 30 ML LIQUID UDC PO PRN
[2019-11-08] MEDS ORDERED: BLOOD SUGAR DIAGNOSTIC 1 EACH STRIP VI ONE
[2019-11-08] MEDS ORDERED: MAGNESIUM HYDROXIDE 30 ML LIQUID UDC PO PRN
[2019-11-08] MEDS ORDERED: ACETAMINOPHEN 325 MG TABLET PO PRN ×2 (01:00)
[2019-11-08] MEDS ORDERED: CALCIUM CARBONATE 500 MG TABLET PO PRN (01:00)
[2019-11-08] MEDS ORDERED: FLEET ENEMA 133 ML BOTTLE RC PRN (01:00)
[2019-11-08] MEDS: TEMAZEPAM 7.5 MG CAPSULE PO PRN (01:01)
[2019-11-08] MEDS ORDERED: CARBIDOPA/LEVODOPA CR 50-200MG TABLET.SA PO SCH ×3 (06:00→21:00)
[2019-11-08] MEDS ORDERED: CARBIDOPA/LEVODOPA CR 50-200MG TABLET.SA PO ONE (06:24)
--- NOTE | 2019-11-08 06:52 | NUR ---
PT SLEPT 3.30MINS S/P RESTORIL, AWAKE AND WALK TO REST ROOM, SAFETY REMINDER.
[2019-11-08 07:30] VITALS: BP 127/83
[2019-11-08] MEDS: DOCUSATE SODIUM 100 MG CAPSULE PO SCH (08:40)
[2019-11-08] MEDS: PRAMIPEXOLE 1 MG TABLET PO SCH ×4 (08:40→20:50)
[2019-11-08] MEDS: ropiniROLE 1 MG TABLET PO SCH ×3 (08:40→16:40)
[2019-11-08] MEDS: CARBIDOPA/LEVODOPA 25-250MG TABLET PO SCH ×4 (08:41→20:51)
[2019-11-08] MEDS ORDERED: PRAMIPEXOLE 0.25 MG TABLET PO SCH (09:00)
[2019-11-08] MEDS: diphenhydrAMINE 25 MG CAP PO PRN (09:31)
--- NOTE | 2019-11-08 10:40 | NUR ---
Received patient this am awake and alert. Vs are stable. Patient c/o itching and asking for medication. Encouraged patient to be up out of bed to the day room but he refused. Patient isolating in bed. Will continue to encourage participation, monitoring for safety and any behavior changes.
--- NOTE | 2019-11-08 11:40 | NUR ---
Social Work Initial Discharge Plan: Patient currently resides at [facility] [place] [address]; ([phone]). This tag writer contacted Mar garza ([phone]). Per Mar, she will contact this tag writer if patient is accepted or not upon discharge. burlap worker will work with the MD regarding appropriate discharge planning. burlap worker will form a safe and proper discharge.
--- NOTE | 2019-11-08 11:53 | NUR ---
Social Work Coordination of Care: Richard Manuel admin from [facility], ([phone]) stated that patient needs to be placed in [place] because he has family there. Richard Manuel, social media marketing analyst from [facility] is working on finding a placement for patient and will contact this film writer. This film writer faxed patient's H & P psychiatric notes, laboratory, and medication list.
[2019-11-08] MEDS: QUETIAPINE FUMARATE 25 MG TABLET PO SCH ×2 (12:32→21:59)
[2019-11-08] MEDS: CLONAZEPAM 0.5 MG TABLET PO PRN (12:33)
[2019-11-08 16:09] VITALS: BP 113/63
--- NOTE | 2019-11-08 18:23 | NUR ---
Patient slept most of the day despite multiple attempts to get him out of the room to interact with others. Patient seems very depressed. No behavior problems today. Monitoring for safety. VS are stable.
--- NOTE | 2019-11-08 18:59 | NUR ---
Patient was asleep then suddenly got up out of bed, did not use his walker and fell down bumping the right side of his head. Patient was assisted up and put back to bed. VS and BS checked. All WNL. Patient remained awake but seemed a bit sleepy . After a few minuted was more alert. Dr. Nelson notified for orders. Patient denies pain. Back in bed with Bed alarm on and activated. Continuing to monitor closely, incident report filed. Will endorse care to on coming shift.
--- NOTE | 2019-11-08 19:55 | NUR ---
Pt taken to CT via wheelchair accompanied by audio visual tech and CONSULTING SOLUTION MANAGER.
--- NOTE | 2019-11-08 20:30 | NUR ---
returned back from radiology. no distress noted.
[2019-11-08 20:42] VITALS: BP 95/61
[2019-11-08 22:00] VITALS: BP 96/60
--- NOTE | 2019-11-08 23:00 | NUR ---
received to care, at start of shift, appearing sleepy and groggy. after returning from radiology, he seemed more awake, and alert. b/p was low, initially, 95/61, HR 71. upon returning from radiology, he was up in the activity room, c/o dizziness, b/p was 89/55, HR 89, at that time. he was assited to bed, and given po fluids, bed placed in trendelenberg position. as of 0, his b/p was 96/60, HR 80, so his bedtime dose of seroquel was held, for low blood pressure. as of 2300, he appears asleep. no distress noted. will continue to monitor closely.
[2019-11-09 01:47] VITALS: BP 114/65
--- NOTE | 2019-11-09 01:47 | NUR ---
pt is up to go to the bathroom. b/p is 113/65. HR 83. denies dizziness or lightheadedness.
[2019-11-09] MEDS: CARBIDOPA/LEVODOPA CR 50-200MG TABLET.SA PO SCH ×2 (03:45→16:37)
[2019-11-09] MEDS ORDERED: CARBIDOPA/LEVODOPA CR 50-200MG TABLET.SA PO SCH (04:00)
--- NOTE | 2019-11-09 06:00 | NUR ---
slept 6.0 hours, total. continues to sleep. no distress noted.
[2019-11-09 08:03] VITALS: BP 100/67
[2019-11-09] MEDS: DOCUSATE SODIUM 100 MG CAPSULE PO SCH (09:34)
[2019-11-09] MEDS: PRAMIPEXOLE 1 MG TABLET PO SCH ×4 (09:34→20:34)
[2019-11-09] MEDS: QUETIAPINE FUMARATE 25 MG TABLET PO SCH ×3 (09:34→20:35)
[2019-11-09] MEDS: ropiniROLE 1 MG TABLET PO SCH ×3 (09:34→16:36)
[2019-11-09] MEDS: CARBIDOPA/LEVODOPA 25-250MG TABLET PO SCH ×4 (09:36→20:35)
--- NOTE | 2019-11-09 14:49 | NUR ---
JALEEL Family Contact: JALEEL spoke with patient's sister, Iris ([phone]) who doesn't speak Swedish and transferred the phone to her son, Alexey and discussed discharge plans. This rfp writer informed Alexey that [facility], patient's penitentiary that patient has resided at for over 2 years, that family indicated they would like placement more closer to them for the patient. This rfp writer has been in communication with Mar from [facility] [phone]. Alexey stated that they would in fact like patient to return to [facility] as he is a ling term resident there and would not feel comfortable sending him to a new facility. This write informed Alexey to call [facility] and discuss this matter, and to inform this rfp writer of who they speak with and the decision. Addendum: 11/09/19 at 1539 by VIANCA WELSH Alexey patient's nephew ([phone]) called this rfp writer back and informed that he spoke with Yadi a screen printing supervisor at [facility] and relayed the message that he would like patient to return back to facility when he is ready for discharge. Alexey stated that he will call again and speak with Octavia admin coordinator at the facility today or tomorrow.
--- NOTE | 2019-11-09 15:03 | NUR ---
Social Work Firearms Report (DOJ): Traffic Rate Computer completed and submitted a DPJ firearms report for 5150 grave disability certification. A copy of report has been placed in patient chart.
[2019-11-09 16:00] VITALS: BP 103/71
[2019-11-09 20:00] VITALS: BP 109/65
--- NOTE | 2019-11-09 22:00 | NUR ---
received to care, lying in bed, isolative, but pleasant upon approach. compliant with medications, and staff direction. snacks and fluids were given. as of 2200, he appears to be asleep. no distress noted. will continue to monitor closely.
[2019-11-09] MEDS: diphenhydrAMINE 25 MG CAP PO PRN (22:43)
--- NOTE | 2019-11-09 22:43 | NUR ---
PRN benadryl given for bilateral arm itching.
--- NOTE | 2019-11-09 23:30 | NUR ---
appears to be asleep. no distress noted.
[2019-11-10] MEDS: CARBIDOPA/LEVODOPA CR 50-200MG TABLET.SA PO SCH ×2 (03:59→16:45)
--- NOTE | 2019-11-10 06:00 | NUR ---
slept 7.5 hours, total. continues to sleep. no distress noted.
[2019-11-10 07:30] VITALS: BP 122/83
[2019-11-10] MEDS: QUETIAPINE FUMARATE 25 MG TABLET PO SCH ×3 (08:36→20:26)
[2019-11-10] MEDS: DOCUSATE SODIUM 100 MG CAPSULE PO SCH (08:36)
[2019-11-10] MEDS: PRAMIPEXOLE 1 MG TABLET PO SCH ×4 (08:36→20:25)
[2019-11-10] MEDS: ropiniROLE 1 MG TABLET PO SCH ×3 (08:36→16:46)
[2019-11-10] MEDS: CARBIDOPA/LEVODOPA 25-250MG TABLET PO SCH ×4 (08:37→20:25)
--- NOTE | 2019-11-10 12:28 | NUR ---
JALEEL Coordination of Care: SW spoke with patient's nephew Alexey ([phone]) who stated that he spoke with Octavia Admission Coordinator at [place] [address] [place] [address] who stated that they cannot accept the patient to their facility. This conventional mortgage underwriter then spoke with Mar the sanitation engineer at the facility who stated that they had discharged the patient over one week ago to a board and care, and came to find out that the patient left the board and care and went to a [facility] ans has been staying there for the past week, then they received a call from the patient asking if he can come back which is when they arranged for the patient to come to the hospital. This conventional mortgage underwriter stated to Mar that they agreed upon sending the patient to the hospital that they will accept him back to their facility. Mar is stating that their admin is not allowing it as they are "not responsible because the patient does not have a bed hold as he had already been discharged from their facility over a week ago". This conventional mortgage underwriter spoke with patient and explained that we need to seek other placement options, and offered an Independent Living or group home facilities in different areas. Patient shared that he would like to speak to his sister and let me know.
--- NOTE | 2019-11-10 12:40 | NUR ---
JALEEL Discharge Planning: JALEEL faxed patient's referral packet to [facility] (ph: [phone]; fax: [phone]) including the face sheet, history and physical, consultation, medication list and labs. Addendum: 11/10/19 at 1323 by VIANCA WELSH Received a call back from Jovita Admin coordinator at the facility stating that are accepting the patient upon discharge.
[2019-11-10 15:57] VITALS: BP 95/61
[2019-11-10 21:32] VITALS: BP 108/64
[2019-11-11] MEDS: CARBIDOPA/LEVODOPA CR 50-200MG TABLET.SA PO SCH ×3 (04:00→16:37)
--- NOTE | 2019-11-11 06:00 | NUR ---
slept 7.0 hours, total. continues to sleep. no distress noted.
[2019-11-11 07:30] VITALS: BP 125/79
[2019-11-11] MEDS: QUETIAPINE FUMARATE 25 MG TABLET PO SCH ×3 (08:39→21:19)
[2019-11-11] MEDS: DOCUSATE SODIUM 100 MG CAPSULE PO SCH (08:39)
[2019-11-11] MEDS: PRAMIPEXOLE 1 MG TABLET PO SCH ×4 (08:40→21:24)
[2019-11-11] MEDS: ropiniROLE 1 MG TABLET PO SCH ×3 (08:40→16:37)
[2019-11-11] MEDS: CARBIDOPA/LEVODOPA 25-250MG TABLET PO SCH ×4 (08:41→21:20)
[2019-11-11 16:00] VITALS: BP 123/79
[2019-11-11 21:12] VITALS: BP 121/76
[2019-11-12] MEDS: CARBIDOPA/LEVODOPA CR 50-200MG TABLET.SA PO SCH ×2 (04:37→15:02)
[2019-11-12 07:30] VITALS: BP 132/86
[2019-11-12] MEDS: QUETIAPINE FUMARATE 25 MG TABLET PO SCH ×3 (07:56→20:16)
[2019-11-12] MEDS: DOCUSATE SODIUM 100 MG CAPSULE PO SCH (08:00)
[2019-11-12] MEDS: ropiniROLE 1 MG TABLET PO SCH ×3 (08:01→16:01)
[2019-11-12] MEDS: PRAMIPEXOLE 1 MG TABLET PO SCH ×4 (08:01→20:18)
[2019-11-12] MEDS: CARBIDOPA/LEVODOPA 25-250MG TABLET PO SCH ×4 (08:13→20:19)
--- NOTE | 2019-11-12 10:04 | NUR ---
GPS: RECEIVED PATIENT AOX3-4, PATIENT AMBULATING IN HALLWAY WITH FWW, UNSTEADY, PATIENT REMINDED TO USE FWW AND NON SKID SOCKS, PATIENT ABLE TO TAKE CARE OF HIMSELF, NO DISTRESS , COMPLIANT WITH MEDICATION, DENIES SI AND HI, WILL CONTINUE MONITOR
[2019-11-12 16:00] VITALS: BP 100/64
--- NOTE | 2019-11-12 17:55 | NUR ---
GPS: CALLED AND LEFT MESSAGE WITH REPORT DEVELOPER DR. ESTRADA , WILL CONTINUE FOLLOW UP REGARDING THE CONSULT,
--- NOTE | 2019-11-12 18:19 | NUR ---
patient been ambulating with FWW sometimes dragging his feet, reminded that he might fall if he continue to drag his feet, patient was aware, no distress at this time
--- NOTE | 2019-11-12 20:30 | NUR ---
received patient in the day room watching TV. Noted A/O x 3, able to ambulate with a FWW. he is noted preoccupied and anxious about shaving his head and cutting his nails. he stated, "I need to shave my head. my hair is getting long, I need a nail file or scissors to cut my nails". mood is anxious, affect is labile. pt able to verbalized feelings. He denies SI/HI/VH/AH able to cfs. pt was reassured and redirected as well. v/s stable at this time. He is reassured for his safety. safety and fall precaution in place. will continue to monitor,
[2019-11-12 21:00] VITALS: BP 146/90
[2019-11-13] MEDS: TEMAZEPAM 7.5 MG CAPSULE PO PRN (00:30)
[2019-11-13] MEDS: CARBIDOPA/LEVODOPA CR 50-200MG TABLET.SA PO SCH ×2 (03:10→15:04)
--- NOTE | 2019-11-13 06:38 | NUR ---
PATIENT SLEPT FOR APPROX 4.45 HRS THROUGH THE NIGHT. CONTINUE COMPLIANT WITH MEDICATION REGIMENT.
[2019-11-13] MEDS: QUETIAPINE FUMARATE 25 MG TABLET PO SCH ×3 (08:01→21:10)
[2019-11-13] MEDS: DOCUSATE SODIUM 100 MG CAPSULE PO SCH (08:01)
[2019-11-13] MEDS: ropiniROLE 1 MG TABLET PO SCH ×3 (08:02→16:06)
[2019-11-13] MEDS: PRAMIPEXOLE 1 MG TABLET PO SCH ×4 (08:02→20:09)
[2019-11-13] MEDS: CARBIDOPA/LEVODOPA 25-250MG TABLET PO SCH ×4 (08:03→20:09)
--- NOTE | 2019-11-13 10:45 | NUR ---
received patient AOx3, patient compliant with medication and walking with FWW, upon making rounds saw patient in his room walking fast without walker, remind patient to use his walker all the time, will continue monitor
--- NOTE | 2019-11-13 12:37 | NUR ---
followed up with toolroom machinist for consult
[2019-11-13 15:42] VITALS: BP 105/74
--- NOTE | 2019-11-13 16:55 | NUR ---
patient requested for afternoon snack, patient had sandwich, instructed to use FWW properly, compliant with medication, denies SI and HI, will continue monitor
--- NOTE | 2019-11-13 18:33 | NUR ---
patient calm and redirectable, no distress
--- NOTE | 2019-11-13 18:54 | NUR ---
upon making rounds patient , patient seen doing something on the side of his bed, approach the patient and ask what he was doing patient says it was nothing, after few minutes i checked the patients again he was on the floor checking the side of his bed, and ask the patient to go back on his bed, patient denies anything , will continue monitor patient behavior
[2019-11-13] MEDS: CLONAZEPAM 0.5 MG TABLET PO PRN (19:36)
--- NOTE | 2019-11-13 20:00 | NUR ---
RECEIVED PATIENT IN HIS ROOM IN BED. HE IS NOTED A/O X 3. HE WAS OBSERVED LOOKING DOWN AT THE SIDE OF HIS BED. WHEN ASKED WHAT HE WAS DOING, HE STATED, "I AM CLEANING MY BED" PATIENT WAS REDIRECTED AT THIS TIME. HE IS NOTED PREOCCUPIED, ANXIOUS, MULTIPLE NEEDS. WHEN HE WAS ASKED WHY MAKES HIM ANXIOUS, HE STATED THAT HE IS WORRY BECAUSE HE DOES NOT KNOW WHERE HE IS GOING TO GO SINCE [facility] NOT WANT HIM ANYMORE. PATIENT WAS REASSURED THAT IS WORKING ON HIS PLACEMENT. HE THEN ASKED TO TAKE A SHOWER, THEN HE ASKED FOR A RADIO. PATIENT WAS REDIRECTED. KLONOPIN 0.5MG PO PRN WAS GIVEN. V/S STABLE AT THIS TIME. PATIENT IS REASSURED FOR HIS SAFETY. SAFETY AND FALL PRECAUTION IN PLACE. WILL CONTINUE TO MONITOR.
[2019-11-13 20:18] VITALS: BP 137/85
--- NOTE | 2019-11-13 20:30 | NUR ---
PATIENT NOTED WALKING RECKLESSLY. NOT USING HIS FWW AT ALL WHEN AMBULATING OR PUSHING HIS FWW FORWARD AND PLAYING WATCH UP. PATIENT WAS GIVEN MULTIPLE REDIRECTION TO WHY HE NEEDS TO USE HIS FWW IN A PROPER AND SAFE WAY. WILL CONTINUE TO MONITOR FOR SAFETY AND FALL PRECAUTION.
[2019-11-13] MEDS: diphenhydrAMINE 25 MG CAP PO PRN (22:31)
[2019-11-14] MEDS: TEMAZEPAM 7.5 MG CAPSULE PO PRN (02:00)
[2019-11-14] MEDS: CARBIDOPA/LEVODOPA CR 50-200MG TABLET.SA PO SCH ×2 (04:18→16:16)
--- NOTE | 2019-11-14 06:32 | NUR ---
patient slept for approx. 1.30 hrs through the night. Continue preoccupied and worry. patient is reassured and redirected. will continue to monitor.
[2019-11-14 08:01] VITALS: BP 130/92
[2019-11-14] MEDS: QUETIAPINE FUMARATE 25 MG TABLET PO SCH ×3 (08:01→20:17)
[2019-11-14] MEDS: DOCUSATE SODIUM 100 MG CAPSULE PO SCH (08:01)
[2019-11-14] MEDS: PRAMIPEXOLE 1 MG TABLET PO SCH ×4 (08:01→20:16)
[2019-11-14] MEDS: ropiniROLE 1 MG TABLET PO SCH ×3 (08:01→16:35)
[2019-11-14] MEDS: CARBIDOPA/LEVODOPA 25-250MG TABLET PO SCH ×4 (08:01→20:16)
[2019-11-14 13:00] VITALS: BP 104/70
[2019-11-14] MEDS ORDERED: CALCIUM CARBONATE 500 MG TAB.CHEW PO PRN (14:30)
--- NOTE | 2019-11-14 16:14 | NUR ---
JALEEL Brief Individual Counseling: SW met with patient patient to provide individual counseling regarding patient's aggressive behaviors. Patient presents with depressed mood and low affect. Patient is laying in bed and appears lethargic and tired. Patient stated he did not sleep well and is very tired. SW attempted to engage in a conversation however patient speech is very low and delayed. Patient wanted to rest and not interact with this film writer at this time.
[2019-11-14 20:57] VITALS: BP 108/69
[2019-11-15] MEDS: CARBIDOPA/LEVODOPA CR 50-200MG TABLET.SA PO SCH ×2 (04:10→16:42)
[2019-11-15 07:30] VITALS: BP 111/75
[2019-11-15] MEDS: ropiniROLE 1 MG TABLET PO SCH ×3 (08:30→16:40)
[2019-11-15] MEDS: CARBIDOPA/LEVODOPA 25-250MG TABLET PO SCH ×4 (08:30→20:40)
[2019-11-15] MEDS: PRAMIPEXOLE 1 MG TABLET PO SCH ×4 (08:31→20:40)
[2019-11-15] MEDS: DOCUSATE SODIUM 100 MG CAPSULE PO SCH (08:33)
[2019-11-15] MEDS: QUETIAPINE FUMARATE 25 MG TABLET PO SCH ×3 (08:34→20:40)
[2019-11-15 16:00] VITALS: BP 104/56
[2019-11-15 21:00] VITALS: BP 128/76
[2019-11-16] MEDS: CARBIDOPA/LEVODOPA CR 50-200MG TABLET.SA PO SCH ×2 (03:53→16:45)
[2019-11-16 07:30] VITALS: BP 139/86
[2019-11-16] MEDS: DOCUSATE SODIUM 100 MG CAPSULE PO SCH (08:25)
[2019-11-16] MEDS: ropiniROLE 1 MG TABLET PO SCH ×3 (08:25→17:28)
[2019-11-16] MEDS: PRAMIPEXOLE 1 MG TABLET PO SCH ×4 (08:25→20:44)
[2019-11-16] MEDS: QUETIAPINE FUMARATE 25 MG TABLET PO SCH ×3 (08:25→20:44)
[2019-11-16] MEDS: CARBIDOPA/LEVODOPA 25-250MG TABLET PO SCH ×4 (08:26→20:44)
--- NOTE | 2019-11-16 13:52 | NUR ---
Received patient earlier this shift laying in bed. VS stable, patient asking for medications. Isolative behavior noted and minimal interaction with other patients. Most of the day spent napping in bed. Patient out of room one time asking about discharge plan. No acute distress or behavior escalation noted. Patient passive but did take a shower today. Continuing to monitor for safety d/t unsteady gait.
[2019-11-16 16:00] VITALS: BP 104/67
[2019-11-16 20:00] VITALS: BP 132/76
--- NOTE | 2019-11-16 22:30 | NUR ---
received to care, lying in bed, isolative, but pleasant upon approach. compliant with medications, and staff direction. snacks and fluids were given. he was in the activity room this evening watching tv, for an hour or two. no interactions noted, with peers. as of 2229, he appears to be asleep. no distress noted. will continue to monitor closely.
[2019-11-17] MEDS: CARBIDOPA/LEVODOPA CR 50-200MG TABLET.SA PO SCH ×2 (03:39→16:25)
--- NOTE | 2019-11-17 06:00 | NUR ---
slept 6.25 hours, total. continues to sleep. no distress noted.
[2019-11-17 07:30] VITALS: BP 150/88
[2019-11-17] MEDS: DOCUSATE SODIUM 100 MG CAPSULE PO SCH (08:13)
[2019-11-17] MEDS: ropiniROLE 1 MG TABLET PO SCH ×3 (08:13→16:25)
[2019-11-17] MEDS: QUETIAPINE FUMARATE 25 MG TABLET PO SCH ×3 (08:13→20:31)
[2019-11-17] MEDS: PRAMIPEXOLE 1 MG TABLET PO SCH ×4 (08:14→20:31)
[2019-11-17] MEDS: CARBIDOPA/LEVODOPA 25-250MG TABLET PO SCH ×4 (08:14→20:31)
[2019-11-17 15:00] VITALS: BP 86/49
--- NOTE | 2019-11-17 15:37 | NUR ---
JALEEL Brief Individual Counseling: SW met with patient patient to provide individual counseling regarding patient's aggressive behaviors. Patient continues to present with depressed mood and low affect. Patient shared that he engaged a little more in group today and that he is feeling anxious and continuously asks where she will go. This selling underwriter provided reassurance and information regarding patient's discharge plans. Patient did not want to engage in a further conversation.
[2019-11-17 20:13] VITALS: BP 135/85
--- NOTE | 2019-11-17 22:00 | NUR ---
received to care, lying in bed, isolative, but pleasant upon approach. compliant with medications, and staff direction. snacks and fluids were given. he was in the activity room this evening watching tv, for an hour or two. no interactions noted, with peers. as of 2200, he appears to be asleep. no distress noted. will continue to monitor closely.
[2019-11-18] MEDS: TEMAZEPAM 7.5 MG CAPSULE PO PRN ×2 (01:17→22:50)
--- NOTE | 2019-11-18 02:00 | NUR ---
PRN restoril was given at 0117, for insomnia. as of 0200, he appears asleep. no distress noted.
[2019-11-18] MEDS: CARBIDOPA/LEVODOPA CR 50-200MG TABLET.SA PO SCH ×2 (03:38→16:07)
--- NOTE | 2019-11-18 06:00 | NUR ---
slept 4.0 hours, total. continues to sleep. no distress noted.
[2019-11-18 07:30] VITALS: BP 145/91
[2019-11-18] MEDS: QUETIAPINE FUMARATE 25 MG TABLET PO SCH ×3 (08:04→20:41)
[2019-11-18] MEDS: ropiniROLE 1 MG TABLET PO SCH ×3 (08:06→16:14)
[2019-11-18] MEDS: CARBIDOPA/LEVODOPA 25-250MG TABLET PO SCH ×4 (08:06→20:41)
[2019-11-18] MEDS: PRAMIPEXOLE 1 MG TABLET PO SCH ×4 (08:07→20:40)
[2019-11-18] MEDS: DOCUSATE SODIUM 100 MG CAPSULE PO SCH (08:07)
--- NOTE | 2019-11-18 12:29 | NUR ---
GPS: received patient AOx2-3, calm cooperative, denies pain, compliant with medication, no distress noted
[2019-11-18 16:00] VITALS: BP 114/77
[2019-11-18] MEDS ORDERED: INSULIN REGULAR, HUMAN 300 UNIT/3 ML VIAL SQ PRN (20:45)
[2019-11-18] MEDS ORDERED: INSULIN REGULAR, HUMAN 300 UNITS/3 ML VIAL SQ PRN (20:45)
[2019-11-18] MEDS ORDERED: DEXTROSE 50% 50 ML DISP.SYRIN IV PRN (20:45)
[2019-11-18] MEDS: BLOOD SUGAR DIAGNOSTIC 1 EACH STRIP VI SCH (21:55)
--- NOTE | 2019-11-18 23:46 | NUR ---
RECEIVED PATIENT IN HIS ROOM AND WAS PLEASANT UPON APPROACH.CALM BUT ISOLATIVE. LOW AFFECT MOOD.DENIES SI/HI.REQUESTED FOR RESTORIL AT 22:50 WITH FAIRLY GOOD EFFECT. INTERACTS WHEN ENGAGED BUT FOR SHORT PERIODS OF TIME. REMINDED TO USE HIS FWW AT ALL TIMES.WILL CONTINUE TO MONITOR FOR SAFETY.
[2019-11-19] MEDS: CLONAZEPAM 0.5 MG TABLET PO PRN (02:58)
[2019-11-19] MEDS: CARBIDOPA/LEVODOPA CR 50-200MG TABLET.SA PO SCH ×2 (03:59→15:30)
--- NOTE | 2019-11-19 06:27 | NUR ---
HE REQUESTED FOR CLONAZEPAM 0.5MG AT 03:00 WITH FAIRLY GOOD EFFECT.ALSO RECEIVED HIS SINEMET 50/200MG ER AT 04;00.BLOOD SUGAR CHECK THIS MORNING WAS 85.SLEPT FOR 6;00HRS.
[2019-11-19] MEDS: BLOOD SUGAR DIAGNOSTIC 1 EACH STRIP VI SCH (07:09)
[2019-11-19 07:30] VITALS: BP 122/87
[2019-11-19] MEDS: PRAMIPEXOLE 1 MG TABLET PO SCH ×4 (08:03→20:20)
[2019-11-19] MEDS: DOCUSATE SODIUM 100 MG CAPSULE PO SCH (08:03)
[2019-11-19] MEDS: QUETIAPINE FUMARATE 25 MG TABLET PO SCH ×3 (08:03→20:20)
[2019-11-19] MEDS: ropiniROLE 1 MG TABLET PO SCH ×3 (08:03→16:37)
[2019-11-19] MEDS: CARBIDOPA/LEVODOPA 25-250MG TABLET PO SCH ×4 (08:04→20:20)
--- NOTE | 2019-11-19 10:35 | NUR ---
Received patient in bed. Patient got up to eat breakfast, take medications, then went back to bed. Encouraged patient to join others in the group room but patient not interested. Isolative behavior noted. Continuing to monitor for safety.
[2019-11-19 16:33] VITALS: BP 106/68
[2019-11-19 20:12] VITALS: BP 113/68
[2019-11-20] MEDS: CARBIDOPA/LEVODOPA CR 50-200MG TABLET.SA PO SCH ×2 (03:20→17:03)
[2019-11-20 07:30] VITALS: BP 139/94
[2019-11-20] MEDS: QUETIAPINE FUMARATE 25 MG TABLET PO SCH ×3 (08:23→20:26)
[2019-11-20] MEDS: PRAMIPEXOLE 1 MG TABLET PO SCH ×4 (08:23→20:26)
[2019-11-20] MEDS: ropiniROLE 1 MG TABLET PO SCH ×3 (08:23→17:02)
[2019-11-20] MEDS: DOCUSATE SODIUM 100 MG CAPSULE PO SCH (08:23)
[2019-11-20] MEDS: CARBIDOPA/LEVODOPA 25-250MG TABLET PO SCH ×5 (08:24→20:27)
--- NOTE | 2019-11-20 10:10 | NUR ---
Brief Substance Abuse intervention: Patient was provided with a brief substance abuse intervention and referred to the following substance abuse programs: [facility] Substance Abuse Self-helpline ([phone]); [facility] [address] [place] [address] ([phone]); [facility] [address] [facility] [address] ([phone]); [facility] ([phone]); [facility] ([phone]); [facility] ([phone]); [facility] ([phone]).
--- NOTE | 2019-11-20 19:07 | NUR ---
Patient seen in activity room. Conversation with peers and participates in activities. no complaint of pain/discomfort. no agitation noted. will continue monitor
[2019-11-20 20:00] VITALS: BP 134/83
[2019-11-20] MEDS: CLONAZEPAM 0.5 MG TABLET PO PRN (21:22)
[2019-11-21] MEDS: diphenhydrAMINE 25 MG CAP PO PRN (04:02)
[2019-11-21] MEDS: CLONAZEPAM 0.5 MG TABLET PO PRN ×2 (04:02→17:28)
[2019-11-21] MEDS: CARBIDOPA/LEVODOPA CR 50-200MG TABLET.SA PO SCH ×2 (04:02→16:55)
--- NOTE | 2019-11-21 08:03 | NUR ---
JALEEL Discharge Note: Patient will be discharged to [facility] [address] [place] [address] ([phone]). Patient will be provided transportation at 11:00am via ambulance. Spoke with Jovita the Admin Coordinator at the facility who states they are ready to accept the patient today. Patient is aware and agreeable with discharge plans. Patient is alert and oriented x4, is unable to plan for self-care however is willing to accept care at the facility. Patient denies suicidal or homicidal ideation. Patient will follow-up at the facility with Psychiatrist Dr. Melissa and Photographer Portrait Dr. Liao. Cst faxed discharge packet to [facility] (fax: [phone]). Patient presents with appropriate mood and flat affect. Patients has no family or supportive contacts to notify of discharge plans. Patient was provided with a brief substance abuse intervention and referred to the following substance abuse programs: [facility] Substance Abuse Self-helpline ([phone]); [facility] [address] [place] [address] ([phone]); [facility] [address] [facility] [address] ([phone]); [facility] ([phone]); [facility] ([phone]); [facility] ([phone]); [facility] ([phone]). JALEEL provided patient with the [phone] [facility] Winter Care Home Program list. SW provided patient with a copy of the [facility] homeless directory which provides information on locations for hot meals, sack lunches, food pantries, and showers. SW provided a list of mental health clinics: [facility] [address] [place] [address] ([phone]); [facility] [address] [place] [address] ([phone]); [facility] [address] [place] [address] ([phone]); a list of medical clinics: [facility] [address] [facility] [address], [place]. [place] ([phone]); [facility] [address] [facility], [facility] [place] [address]; [facility] [address] [place] [address] ([phone]). Patient signed the homeless waiver form and a copy has been placed in the chart.
[2019-11-21] MEDS: QUETIAPINE FUMARATE 25 MG TABLET PO SCH ×3 (08:57→20:27)
[2019-11-21] MEDS: DOCUSATE SODIUM 100 MG CAPSULE PO SCH (08:57)
[2019-11-21] MEDS: PRAMIPEXOLE 1 MG TABLET PO SCH ×4 (08:58→20:26)
[2019-11-21] MEDS: ropiniROLE 1 MG TABLET PO SCH ×3 (08:59→16:48)
[2019-11-21] MEDS: CARBIDOPA/LEVODOPA 25-250MG TABLET PO SCH ×4 (09:00→20:27)
--- NOTE | 2019-11-21 12:30 | NUR ---
patient is being discharged to [facility], called for report, phone was on hold for 45 minutes and goes silent, tried twice
--- NOTE | 2019-11-21 13:30 | NUR ---
patient discharged [facility], discharge instructions given to patient, patient verbalized understanding of it, belongings given to patient, patient cell phone given to patient, belongings accounted and signed, patient is alert,oriented x3, no sob, resp even nonlabored, skin warm and dry to touch, no distress noted, skin intact.
[2019-11-21 16:00] VITALS: BP 158/95
--- NOTE | 2019-11-21 16:45 | NUR ---
patient came back after not accepted in facility, no distress noted, skin intact.
[2019-11-21 20:19] VITALS: BP 115/74
--- NOTE | 2019-11-21 21:49 | NUR ---
GPS/RN: PT Alyson/OX3, RECEIVED ENDORSEMENT THAT PT RETURNED TO FACILITY DUE TO PLACEMENT. PT NOTED WITH TREMORS WHILE SITTING BUT NOT VIGOROUSLY. COOPERATIVE AND ROUTINE MEDICATIONS ADMINISTERED. PT TOOK SHOWER TONIGHT. WILL CONTINUE TO MONITOR, NO AGGRESSION OR ABNORMAL AT THIS TIME.
[2019-11-22] MEDS: CLONAZEPAM 0.5 MG TABLET PO PRN (00:44)
[2019-11-22] MEDS: CARBIDOPA/LEVODOPA CR 50-200MG TABLET.SA PO SCH ×2 (04:03→15:33)
--- NOTE | 2019-11-22 06:42 | NUR ---
PT HAD EPISODES OF AWAKE AND WALKING IN THE HALLWAY, PT SAID HE IS NOT ABLE TO SLEEP DURING NIGHT, PRN KLONOPIN WAS GIVEN AT 0044. NOTED SOME EFFECTS BUT PT WAS UP AND WALKING, AND ASKING FOR DONUTS OR APOLLO LOCO FOODS. MADE PT AWARE IS LATE AND WILL NOT BE ABLE TO BUY HIM FOOD. REDIRECT AND ROUTINE MEDS GIVEN ORDER. PT RESTED A BIT. WILL ENDORSE TO INCOMING NURSE.
[2019-11-22 07:30] VITALS: BP 145/92
[2019-11-22] MEDS: DOCUSATE SODIUM 100 MG CAPSULE PO SCH (09:20)
[2019-11-22] MEDS: PRAMIPEXOLE 1 MG TABLET PO SCH ×2 (09:21→13:21)
[2019-11-22] MEDS: CARBIDOPA/LEVODOPA 25-250MG TABLET PO SCH ×2 (09:21→13:20)
[2019-11-22] MEDS: ropiniROLE 1 MG TABLET PO SCH ×2 (09:22→13:21)
[2019-11-22] MEDS: QUETIAPINE FUMARATE 25 MG TABLET PO SCH ×2 (09:24→13:19)
--- NOTE | 2019-11-22 11:00 | NUR ---
SW Discharge Planning: Patient was sent back to [facility] upon his arrival to [facility] due to not having a bed available for the patient. This adjusto writer operator spoke with Christina ([phone]) and Jovita ([phone]) regarding this concern who have stated that there was a bedding issue. Christina stated that the facility should not have returned the patient back to [facility] however, was not involved during the time of the decision being made due to being in a meeting. Auto Inspection Specialist sought alternate placement for the patient at this time and secured a bed for the patient at [facility] [address] [place] [address] ([phone]) spoke with Masha forest practices field coordinator and Saman product marketing specialist.
--- NOTE | 2019-11-22 11:52 | NUR ---
Discharge Note: Patient will be discharged today to [facility] [address] [place] [address] ([phone]). Patient will be provided ambulance transportation at 2PM. Spoke with Masha, hse coordinator at the facility who states they are ready to accept the patient today. Patient is aware and agreeable with discharge plans. Patient presents with appropriate mood and full range affect. Patient denies suicidal or homicidal ideation. Patient will be following up with psychiatrist Dr. White and director export Dr. Liao at the facility. Patient signed the homeless waiver form and a copy has been placed in the chart. Patient was provided with the homeless prison packet, which includes a list of emergency shelters, housing resources, drop in centers, and showers/hot meals centers.
--- NOTE | 2019-11-22 15:53 | NUR ---
1400 Called [facility] regarding patient that will be dischrget to their facility, spoke to Rob Thakkar and report given rgarding the pain, 1540 Patient picked up by ambulance and transfer to the facility stable condition, denies SI/HI
[2019-11-23] MEDS ORDERED: FAMOTIDINE 20 MG TABLET PO SCH (09:00)
== END 2019-11-22 15:59 | DRG 885 ==
LOC: ER 17:52 → GPS 23:15
PROVIDERS: ADMIT Psychiatry & Neurology Psychosomatic Medicine; ATTEND Nurse Practitioner Acute Care
PROC: 0HBRXZZ Excision of Toe Nail, External Approach (ICD-10-PCS; principal; 2019-11-14)
DX: F25.9 Schizoaffective disorder, unspecified (principal); N17.0 Acute kidney failure with tubular necrosis; G93.41 Metabolic encephalopathy; J98.11 Atelectasis; G20 Parkinson's disease; F02.80 Dementia in other diseases classified elsewhere, unspecified severity, without behavioral disturbance, psychotic disturbance, mood disturbance, and anxiety; D63.8 Anemia in other chronic diseases classified elsewhere; K44.9 Diaphragmatic hernia without obstruction or gangrene; B35.1 Tinea unguium; E86.0 Dehydration; F32.9 Major depressive disorder, single episode, unspecified; G47.00 Insomnia, unspecified; F29 Unspecified psychosis not due to a substance or known physiological condition; Z73.6 Limitation of activities due to disability; H54.7 Unspecified visual loss; M62.84 Sarcopenia; R74.0 Nonspecific elevation of levels of transaminase and lactic acid dehydrogenase [LDH]; R82.6 Abnormal urine levels of substances chiefly nonmedicinal as to source; R90.89 Other abnormal findings on diagnostic imaging of central nervous system
CPT/HCPCS: 36415; 70450; 71045; 71046; 80307; 80329; 85025; 87086; A4663; G0480; G0480-TC; J1815; Q0163